=== PATIENT | female | born 1990 | race Caucasian/White ===

== ENCOUNTER 2021-09-16 15:06 | Inpatient (IN) | payer OTHER, SELFPAY ==
[2021-09-16 16:11] VITALS: BMI 29.0
[2021-09-16] MEDS ORDERED: NS w/ Oxytocin 30 units 500 ML ONE ×2 (17:07→21:20)
[2021-09-16] MEDS ORDERED: Fentanyl 2 mcg/Bup 0.1% Cadd 100 ML ONE (17:53)
[2021-09-16 18:01] LABS: Hemoglobin 12.4 g/dL (12.0-15.5); Mean Corpuscular HGB CONC 34.2 g/dL (32.0-36.0); Mean Corpuscular Hemoglobin 31.3 pg (27.0-33.0); Mean Corpuscular Volume 91.7 fl (81.6-98.3); Mean Platelet Volume 12.7 fl (7.4-10.4); Platelet Count 154 10x3/uL (150-450); RBC Distribution Width 12.2 % (11.5-14.5); Red Blood Cell (RBC) Count 3.96 10x6/uL (3.90-5.03)
[2021-09-16] MEDS ORDERED: diphenhydrAMINE 50 MG/ML VIAL IVP PRN (18:35)
[2021-09-16] MEDS ORDERED: Acetaminophen 325 MG TAB PO PRN (18:35)
[2021-09-16] MEDS ORDERED: Hydrocerin (Eucerin) Cream 120 gm Jar TOP PRN (18:35)
[2021-09-16] MEDS ORDERED: Lactated Ringer's 500 ML IV PRN (18:35)
[2021-09-16] MEDS ORDERED: Naloxone HCl 0.4 mg/ml Vial IVP PRN ×2 (18:35)
[2021-09-16] MEDS ORDERED: Ondansetron PF 4 MG/2 ML Vial IVP PRN ×2 (18:35→21:39)
[2021-09-16] MEDS ORDERED: ePHEDrine Sulfate 50 MG/10 ML VIAL SLOW IVP PRN (18:35)
[2021-09-16] MEDS ORDERED: Promethazine HCl 25 MG/ML VIAL IM PRN (18:35)
[2021-09-16] MEDS ORDERED: Communication Order-Pharmacy FS SCH (18:45)
[2021-09-16] MEDS ORDERED: Fentanyl 2 mcg/Bupivacaine 0.1% Cassette 100 ML EPIDURAL SCH (18:45)
[2021-09-16 20:03] LABS: SARS-CoV-2 NAA Rapid Test Not Detected (NotDetected)
[2021-09-16] MEDS ORDERED: Misoprostol 200 MCG TAB VAG PRN (21:39)
[2021-09-16] MEDS ORDERED: Bisacodyl 10 MG SUPP PR PRN (21:39)
[2021-09-16] MEDS ORDERED: Benzocaine-Menthol 82.5 ML CAN TOP PRN (21:39)
[2021-09-16] MEDS ORDERED: Boostrix 0.5 ML (Tdap) VIAL IM ONE (21:39)
[2021-09-16] MEDS ORDERED: Milk Of Magnesia 30 ML UDCUP PO PRN (21:39)
[2021-09-16] MEDS ORDERED: hydrALAZINE 20 MG/ML VIAL SLOW IVP PRN (21:39)
[2021-09-16] MEDS ORDERED: NS w/ Oxytocin 30 units 500 ML IV SCH (21:45)
[2021-09-16] MEDS: Ibuprofen 800 MG TAB PO SCH (22:19)
[2021-09-17] MEDS: Acetaminophen/Codeine 30-300mg Tablet PO PRN ×5 (00:17→21:46)
[2021-09-17 05:20] LABS: Hemoglobin 10.9 g/dL (12.0-15.5)
[2021-09-17] MEDS: Ibuprofen 800 MG TAB PO SCH ×3 (06:31→21:45)
[2021-09-17] MEDS: Ferrous Sulfate 325 MG TAB PO SCH ×2 (07:54→17:26)
[2021-09-17] MEDS ORDERED: Lanolin Ointment 7 GM TUBE TOP PRN (08:10)
[2021-09-17] MEDS: Docusate Calcium (SURFAK) 240 MG CAP PO SCH ×2 (08:38→21:45)
[2021-09-18] MEDS: Ibuprofen 800 MG TAB PO SCH (05:40)
[2021-09-18 07:35] VITALS: BP 115/76; TEMP 98.3
[2021-09-18] MEDS: Ferrous Sulfate 325 MG TAB PO SCH (09:31)
== END 2021-09-18 10:35 | disposition home or self-care (01) | DRG 807 ==
LOC: CSHLD 15:06 → CSHPP 23:30
PROVIDERS: ADMIT Obstetrics & Gynecology; ATTEND Obstetrics & Gynecology
PROC: 10E0XZZ Delivery of Products of Conception, External Approach (ICD-10-PCS; principal; 2021-09-16)
PROC: 0KQM0ZZ Repair Perineum Muscle, Open Approach (ICD-10-PCS; 2021-09-16)
DX: O70.1 Second degree perineal laceration during delivery (principal); Z37.0 Single live birth; Z3A.38 38 weeks gestation of pregnancy; Z20.822 Contact with and (suspected) exposure to COVID-19
CPT/HCPCS: 36415; 51702; 85014; 85018; 86850; 86900; 86901; J2590; U0002